=== PATIENT | female | born 1995 | race Caucasian/White ===

== ENCOUNTER → 2018-01-09 | Outpatient (CLI) | payer OTHER ==
[2018-01-14 23:12] LABS: CHLAMYDIA TRACHOMATIS, NAA Negative (Negative); NEISSERIA GONORRHOEAE, NAA Negative (Negative)
== END ==
LOC: LAB 16:32 → LAB SHORT 16:32
PROVIDERS: Nurse Practitioner Family
DX: Z11.3 Encounter for screening for infections with a predominantly sexual mode of transmission (principal)
CPT/HCPCS: 87491; 87591

== ENCOUNTER → 2018-11-07 | Outpatient (CLI) | payer OTHER ==
[2018-12-06 07:10] LABS: HPV GENOTYPE 16 Negative (Negative)
== END | disposition home or self-care (01) ==
LOC: LAB SHORT 11:52 → LAB 11:52
PROVIDERS: Nurse Practitioner Women's Health
DX: R87.612 Low grade squamous intraepithelial lesion on cytologic smear of cervix (LGSIL) (principal)
CPT/HCPCS: 87625

== ENCOUNTER 2019-12-25 11:22 | Emergency (ER) | payer OTHER ==
[~2019-12-25] VITALS: Ht 167.6 cm; Wt 61.2 kg
[2019-12-25] MEDS ORDERED: VENL25 PO (11:43)
[2019-12-25] MEDS ORDERED: Portia1 EACH PO (11:44)
== END 2019-12-25 14:29 | disposition home or self-care (01) ==
LOC: ER 11:22
DX: S16.1XXA Strain of muscle, fascia and tendon at neck level, initial encounter (principal); F32.9 Major depressive disorder, single episode, unspecified; V89.2XXA Person injured in unspecified motor-vehicle accident, traffic, initial encounter
CPT/HCPCS: 99283

== ENCOUNTER → 2022-08-10 | Outpatient (CLI) | payer OTHER ==
[~2022-08-10] MED LIST: Portia1 EACH PO; VENL25 PO
[2022-08-10 18:48] LABS: BASOPHILS ABSOLUTE AUTO 0.05 K/mm3 (0.00-0.23); BASOPHILS PERCENT AUTO 1 % (0-2); EOSINOPHILS PERCENT AUTO 1 % (0-6); Hematocrit 38.6 % (33.0-51.0); Hemoglobin 12.9 g/dL (11.5-16.0); IMMATURE GRAN ABSOLUTE AUTO 0.03 K/mm3 (0.00-0.10); IMMATURE GRAN PERCENT AUTO 0 % (0-1); LYMPHOCYTES ABSOLUTE AUTO 4.16 K/mm3 (0.84-5.20); LYMPHOCYTES PERCENT AUTO 41 % (21-46); MONOCYTES ABSOLUTE AUTO 0.79 K/mm3 (0.16-1.47); MONOCYTES PERCENT AUTO 8 % (4-13); Mean Corpuscular HGB 30.4 pg (26.0-34.0); Mean Corpuscular HGB Conc 33.4 g/dL (31.5-36.5); Mean Corpuscular Volume 91 fL (80-100); Mean Platelet Volume 9.9 fL (9.1-12.4); NEUTROPHILS ABSOLUTE AUTO 5.13 K/mm3 (1.96-9.15); NEUTROPHILS PERCENT AUTO 50 % (41-73); Platelet Count 294 K/mm3 (150-400); RDW Coefficient Variation 12.6 % (11.7-14.2); Red Blood Cell Count 4.25 M/mm3 (3.80-5.20); White Blood Cell Count 10.26 K/mm3 (4.00-11.30)
[2022-08-10 18:53] LABS: Bun/Creatinine Ratio 17.4 (12.0-20.0); Calcium, Blood 9.1 mg/dL (8.5-10.1); Creatinine, Blood 0.69 mg/dL (0.40-1.00); Potassium, Blood 2.9 mmol/L (3.5-5.5)
== END | disposition home or self-care (01) ==
LOC: LAB SHORT 18:43
PROVIDERS: Chiropractor
DX: E87.6 Hypokalemia (principal); R07.9 Chest pain, unspecified
CPT/HCPCS: 80048; 83735; 84484; 85025; 85379

== ENCOUNTER → 2023-09-11 | Outpatient (CLI) | payer OTHER | END | disposition home or self-care (01) | LOC: LAB 17:44 → LAB SHORT 17:44 | DX: R30.0 Dysuria (principal) | CPT/HCPCS: 87086 ==

== ENCOUNTER → 2023-11-21 | Outpatient (CLI) | payer OTHER ==
[2023-11-23 06:00] LABS: APTIMA MEDIA TYPE Urine; C. TRACHOMATIS BY TMA Negative (Negative); N. GONORRHOEAE BY TMA Negative (Negative); SPECIMEN SOURCE Urine
== END | disposition home or self-care (01) ==
LOC: LAB SHORT 08:40 → LAB 08:40
PROVIDERS: Registered Nurse Community Health
DX: Z34.81 Encounter for supervision of other normal pregnancy, first trimester (principal)
CPT/HCPCS: 87491; 87591

== ENCOUNTER → 2024-01-29 | Outpatient (CLI) | payer OTHER ==
[~2024-01-29] MED LIST changes: +CEPH500 PO; +CYCL10 PO; +Robaxin750 MG PO
[2024-01-29 14:45] LABS: Source, Urine Clean Catch
[2024-01-29 17:17] LABS: Bilirubin, Urine Neg (Neg); Blood, Urine Neg (Neg); Color, Urine Yellow (P-Yellow); Glucose Qualitative, Urine Neg (Neg); Ketones, Urine Neg (Neg); Leukocyte Esterase, Urine 1+ (Neg); Nitrite, Urine Neg (Neg); Protein, Urine Neg (Neg); Specific Gravity, Urine 1.015 (1.003-1.022); Urobilinogen, Urine NORM (Normal)
[2024-01-29 17:31] LABS: Appearance, Urine Hazy (Clear)
[2024-01-29 17:32] LABS: Amorphous Mod (0-Heavy); Bacteria Many /hpf; Mucus Light (0-Heavy); Red Blood Cells, Urine 0-2 /hpf (0-2); Squamous Epithelial Cells Many /hpf (Few); Transitional Epithelial Cells Rare /hpf (0-Rare)
== END ==
LOC: LAB 14:41 → LAB SHORT 14:41
PROVIDERS: Pathology Dermatopathology
DX: M54.50 Low back pain, unspecified (principal)
CPT/HCPCS: 81001

== ENCOUNTER 2024-01-30 10:04 | Emergency (ER) | payer OTHER ==
[~2024-01-30] VITALS: Ht 167.6 cm; Wt 69.0 kg
[~2024-01-30 10:04] MED LIST changes: -CEPH500 PO; -CYCL10 PO; -Robaxin750 MG PO
[2024-01-30] MEDS ORDERED: CYCL10 PO (11:12)
[2024-01-30] MEDS ORDERED: Methocarbamol 500 MG Tab PO ONE (11:20)
[2024-01-30] MEDS ORDERED: Lactated Ringer's 1,000 ML IV ONE (11:20)
[2024-01-30] MEDS ORDERED: Acetaminophen 500 MG Tab PO ONE (11:20)
[2024-01-30 11:30] VITALS: BP 104/57
[2024-01-30 11:59] LABS: BASOPHILS ABSOLUTE AUTO 0.05 K/mm3 (0.00-0.23); BASOPHILS PERCENT AUTO 0 % (0-2); EOSINOPHILS ABSOLUTE AUTO 0.07 K/mm3 (0.00-0.68); EOSINOPHILS PERCENT AUTO 1 % (0-6); Hematocrit 31.9 % (33.0-51.0); Hemoglobin 10.6 g/dL (11.5-16.0); IMMATURE GRAN ABSOLUTE AUTO 0.12 K/mm3 (0.00-0.10); IMMATURE GRAN PERCENT AUTO 1 % (0-1); LYMPHOCYTES ABSOLUTE AUTO 1.92 K/mm3 (0.84-5.20); LYMPHOCYTES PERCENT AUTO 16 % (21-46); MONOCYTES ABSOLUTE AUTO 0.68 K/mm3 (0.16-1.47); MONOCYTES PERCENT AUTO 6 % (4-13); Mean Corpuscular HGB 31.2 pg (26.0-34.0); Mean Corpuscular HGB Conc 33.2 g/dL (31.5-36.5); Mean Corpuscular Volume 94 fL (80-100); Mean Platelet Volume 9.3 fL (9.1-12.4); NEUTROPHILS ABSOLUTE AUTO 9.57 K/mm3 (1.96-9.15); NEUTROPHILS PERCENT AUTO 77 % (41-73); Platelet Count 254 K/mm3 (150-400); RDW Coefficient Variation 13.2 % (11.7-14.2); RDW Standard Deviation 45.4 fL (35.1-46.3); White Blood Cell Count 12.41 K/mm3 (4.00-11.30)
[2024-01-30 12:08] LABS: Source, Urine Clean Catch
[2024-01-30 12:13] LABS: Appearance, Urine Hazy (Clear); Bilirubin, Urine Neg (Neg); Blood, Urine Neg (Neg); Color, Urine Yellow (P-Yellow); Glucose Qualitative, Urine Neg (Neg); Ketones, Urine Neg (Neg); Leukocyte Esterase, Urine 2+ (Neg); Nitrite, Urine Neg (Neg); Protein, Urine Neg (Neg); Urobilinogen, Urine NORM (Normal)
[2024-01-30 12:24] LABS: Albumin, Blood 2.9 g/dL (3.4-5.0); Albumin/Globulin Ratio 0.7 (0.8-1.8); Bilirubin, Total 0.3 mg/dL (0.1-1.0); Bun/Creatinine Ratio 19.5 (12.0-20.0); Calcium, Blood 8.5 mg/dL (8.5-10.1); Creatinine, Blood 0.51 mg/dL (0.40-1.00); Globulin, Blood 3.9 g/dL (2.2-4.0); Total Protein, Blood 6.8 g/dL (6.4-8.2)
[2024-01-30 12:26] LABS: Bacteria Many /hpf; Mucus Heavy (0-Heavy); Red Blood Cells, Urine 0-2 /hpf (0-2); Squamous Epithelial Cells Many /hpf (Few)
[2024-01-30] MEDS ORDERED: Cephalexin Monohydrate 500 MG Cap PO ONE (12:50)
[2024-01-30] MEDS ORDERED: CEPH500 PO (12:50)
[2024-01-30] MEDS ORDERED: Robaxin750 MG PO (12:57)
== END 2024-01-30 13:05 | disposition home or self-care (01) ==
LOC: ER 10:04
PROVIDERS: Emergency Medicine
DX: O23.12 Infections of bladder in pregnancy, second trimester (principal); N30.00 Acute cystitis without hematuria; Z3A.23 23 weeks gestation of pregnancy; O99.342 Other mental disorders complicating pregnancy, second trimester; F32.A Depression, unspecified; Z79.899 Other long term (current) drug therapy
CPT/HCPCS: 80053; 81001; 83690; 85025; 87086; 93005; 93010; 96360; 99284-25; A9270; J7120

== ENCOUNTER → 2024-04-28 | Outpatient (CLI) | payer OTHER ==
[~2024-04-28] MED LIST changes: +CEPH500 PO; +CYCL10 PO; +Robaxin750 MG PO
== END | disposition home or self-care (01) ==
LOC: LAB SHORT 10:39 → LAB 10:39
DX: Z34.93 Encounter for supervision of normal pregnancy, unspecified, third trimester (principal)
CPT/HCPCS: 87081; 87150

== ENCOUNTER 2024-05-31 12:30 | Inpatient (IN) | payer OTHER ==
[~2024-05-31] VITALS: Ht 167.6 cm; Wt 84.0 kg
[2024-05-31] MEDS ORDERED: OXYTOCIN/RINGER'S LACTATE 500 ML IV PRN (12:45)
[2024-05-31] MEDS ORDERED: Acetaminophen 500 MG Tab PO PRN (12:45)
[2024-05-31] MEDS ORDERED: ePHEDrine Sulfate 50 MG/ML 1ML Injection XX PRN (12:45)
[2024-05-31] MEDS ORDERED: Methylergonovine Maleate 0.2MG / ML 1ML Amp IM PRN (12:45)
[2024-05-31] MEDS ORDERED: Oxytocin 10 Unit / ML Vial IM PRN (12:45)
[2024-05-31] MEDS ORDERED: FentaNYL 2mcg/ml-Bup 0.1% Epd 250 ML EPI PRN (12:45)
[2024-05-31] MEDS ORDERED: Misoprostol 200 MCG Tab PR PRN (12:45)
[2024-05-31] MEDS ORDERED: Carboprost Tromethamine 250 MCG/ML 1ML Amp IM PRN (12:45)
[2024-05-31] MEDS ORDERED: Misoprostol 200 MCG Tab BC PRN (12:45)
[2024-05-31] MEDS ORDERED: Lactated Ringer's 1,000 ML IV PRN ×3 (12:45)
[2024-05-31] MEDS ORDERED: FentaNYL Citrate 50 MCG/ML 2 ML Injection IV PRN (12:45)
[2024-05-31] MEDS ORDERED: Ondansetron HCl 2 MG / ML 2ML Vial IV PRN (12:45)
[2024-05-31 12:50] VITALS: BP 137/85
[2024-05-31] MEDS ORDERED: Calcium Carbonate 500 MG Tab Chew PO PRN (12:50)
[2024-05-31] MEDS ORDERED: Tranexamic Acid 100 ML IV PRN (12:55)
[2024-05-31] MEDS ORDERED: PANT20 PO (13:14)
[2024-05-31] MEDS ORDERED: PRENATAL TABLE1 EAC2 PO (13:14)
[2024-05-31 13:17] LABS: BASOPHILS ABSOLUTE AUTO 0.06 K/mm3 (0.00-0.23); BASOPHILS PERCENT AUTO 1 % (0-2); EOSINOPHILS ABSOLUTE AUTO 0.08 K/mm3 (0.00-0.68); EOSINOPHILS PERCENT AUTO 1 % (0-6); Hematocrit 36.4 % (33.0-51.0); Hemoglobin 12.2 g/dL (11.5-16.0); IMMATURE GRAN ABSOLUTE AUTO 0.26 K/mm3 (0.00-0.10); IMMATURE GRAN PERCENT AUTO 2 % (0-1); LYMPHOCYTES ABSOLUTE AUTO 2.13 K/mm3 (0.84-5.20); LYMPHOCYTES PERCENT AUTO 17 % (21-46); MONOCYTES ABSOLUTE AUTO 0.99 K/mm3 (0.16-1.47); MONOCYTES PERCENT AUTO 8 % (4-13); Mean Corpuscular HGB 30.5 pg (26.0-34.0); Mean Corpuscular HGB Conc 33.5 g/dL (31.5-36.5); Mean Corpuscular Volume 91 fL (80-100); Mean Platelet Volume 10.5 fL (9.1-12.4); NEUTROPHILS ABSOLUTE AUTO 9.31 K/mm3 (1.96-9.15); NEUTROPHILS PERCENT AUTO 73 % (41-73); Platelet Count 244 K/mm3 (150-400); RDW Coefficient Variation 13.6 % (11.7-14.2); RDW Standard Deviation 45.7 fL (35.1-46.3); White Blood Cell Count 12.83 K/mm3 (4.00-11.30)
[2024-05-31 15:00] VITALS: BP 122/69
[2024-05-31] MEDS ORDERED: Lactated Ringer's 1,000 ML IV SCH (17:20)
[2024-05-31] MEDS ORDERED: OXYTOCIN/RINGER'S LACTATE 500 ML IV SCH ×2 (17:20→17:35)
[2024-05-31 18:01] VITALS: BP 116/65
[2024-05-31 19:34] VITALS: BP 123/68
[2024-05-31] MEDS ORDERED: Morphine Sulfate 10 MG/ML 1MLSYR IM PRN (20:55)
--- NOTE | 2024-05-31 20:58 | NUR ---
DR. PASCUAL MEET WITH PT. DISCUSSED OPTIONS FOR OVER NIGHT AND ALL QUESTIONS WERE ANSWERED. ORDERS FOR A MAX OF PITOCIN AT 8MU. PT CAN HAVE MORPHINE 10MG IM FOR PAIN PRN, VISTRAL 25MG PO PRN OR PHENEGRAN 25MG PO FOR PRN. IF PT GOES INTO [facility] PITOCIN CAN BE SHUT OFF. PT CAN HAVE A PITOCIN BREAK IN AM IF NEEDED. DO NOT CHECK CERVIX UNLESS PT GOES INTO [facility], HAS UNTOLERATED PAIN OR FOR INTOLERANCE. CALL WITH ANY CONCERNS. RBV
[2024-05-31] MEDS ORDERED: Promethazine HCl 25 MG Tab PO PRN (21:00)
[2024-05-31] MEDS ORDERED: HydrOXYzine Pamoate 25 MG Cap PO PRN (21:05)
[2024-06-01] VITALS (30 sets, daily range): BP systolic 95–137; BP diastolic 53–86
[2024-06-01] MEDS ORDERED: Oxytocin 10 Unit / ML Vial IM ONE (20:05)
[2024-06-01] MEDS ORDERED: Benzocaine Topical Anesthetic Spray 60GM TOP PRN (20:05)
[2024-06-01] MEDS ORDERED: OxyCODONE 5 mg/Acetamin 325 mg TABLET PO PRN (20:05)
[2024-06-01] MEDS ORDERED: Acetaminophen 325 MG TABLET PO PRN (20:05)
[2024-06-01] MEDS ORDERED: Diphth,Pertuss(Acell),Tet Vac 0.5 ML VIAL IM SCH (20:05)
[2024-06-01] MEDS ORDERED: Docusate Sodium 100 MG Cap PO PRN (20:05)
[2024-06-01] MEDS ORDERED: Ibuprofen 400 MG Tab PO PRN (20:10)
[2024-06-01] MEDS ORDERED: Lactated Ringer's 1,000 ML IV SCH (20:10)
[2024-06-01] MEDS ORDERED: Witch Hazel/Glycerin PADS TOP PRN (20:10)
[2024-06-01] MEDS ORDERED: OXYTOCIN/RINGER'S LACTATE 500 ML IV SCH (20:10)
[2024-06-01] MEDS ORDERED: Ketorolac Tromethamine 30mg Vial IV PRN (20:10)
[2024-06-01] MEDS ORDERED: Measles/Mumps/Rubella Vaccine 0.5 ML Vial SC SCH (20:10)
[2024-06-01] MEDS ORDERED: FLU VACC TS2024-25(6MOS UP)/PF 45 MCG/0.5 ML SYRINGE IM SCH (20:10)
[2024-06-01] MEDS ORDERED: Misoprostol 200 MCG Tab PR PRN (20:15)
[2024-06-01] MEDS ORDERED: Hydrocortisone/Pramoxine Rectal Foam 10 GM PR SCH (23:00)
[2024-06-01] MEDS ORDERED: Benzocaine/Benzethon Topical Anesthetic Spray 78GM TOP PRN (23:50)
[2024-06-02 00:19] VITALS: BP 109/55
[2024-06-02 04:03] VITALS: BP 101/59
--- NOTE | 2024-06-02 04:07 | NUR ---
Pt up to [facility]. liliana taught
[2024-06-02 05:48] LABS: Hematocrit 31.7 % (33.0-51.0); Hemoglobin 10.4 g/dL (11.5-16.0); Mean Corpuscular HGB 30.3 pg (26.0-34.0); Mean Corpuscular HGB Conc 32.8 g/dL (31.5-36.5); Mean Corpuscular Volume 92 fL (80-100); Mean Platelet Volume 10.8 fL (9.1-12.4); Platelet Count 200 K/mm3 (150-400); RDW Coefficient Variation 13.8 % (11.7-14.2); RDW Standard Deviation 46.7 fL (35.1-46.3); Red Blood Cell Count 3.43 M/mm3 (3.80-5.20); White Blood Cell Count 19.33 K/mm3 (4.00-11.30)
[2024-06-02 07:08] VITALS: BP 120/70
[2024-06-02] MEDS ORDERED: IBUP800 PO (08:20)
[2024-06-02] MEDS ORDERED: DOCU100 PO (08:21)
[2024-06-02] MEDS ORDERED: PRENATAL TABLE1 EAC2 PO (08:21)
--- NOTE | 2024-06-02 08:57 | NUR ---
0730: PT OFFERED ICE PACK FOR PERINEUM. PT DECLINED AT THIS TIME. DISCUSSED SWELLING BEING A CAUSE OF SOME PAIN. ENCOURAGED USE OF NSAIDS AND ICE. PT DECLINED TORDOL OR IBUPROFEN AT THIS TIME. DISCUSSED THE BENEFITS OF USING EITHER. PT ONLY DESIRED TYLENOL 0800: PT REPORTS NO CHANGE IN HER PAIN. OFFERED TORDOL OR IBUPROFEN AND ICE PACK. PT DECLINED ALL. STATES SHE WANTS TO TAKE A SHOWER AND SEE HOW SHE FEELS AFTERWARDS.
[2024-06-02] MEDS ORDERED: Prenatal Vit/FE Fumarate/FA 1 Tab PO SCH ×2 (09:00)
--- NOTE | 2024-06-02 09:39 | NUR ---
PT REPORTS RELIEF OF PAIN AFTER TAKING A SHOWER. UP AMBULATING IN THE ROOM WELL. GOING OVER D/C INSTRUCTIONS. NO QUESTIONS OR CONCERNS AT THIS TIME.
[2024-06-02] MEDS ORDERED: Hydrocortisone 2.5% Cream 30 gm Tube PR SCH (10:00)
[2024-06-02 11:43] VITALS: BP 112/62
[2024-06-02 16:55] VITALS: BP 119/59
--- NOTE | 2024-06-02 17:03 | NUR ---
D/C TO BOARDER STATUS.
== END 2024-06-02 17:03 | disposition home or self-care (01) | DRG 807 ==
LOC: OBS 12:30 → BC 12:30 → OBS 12:41 → BC 12:43
PROVIDERS: Registered Nurse Community Health; ADMIT Family Medicine
PROC: 10D07Z6 Extraction of Products of Conception, Vacuum, Via Natural or Artificial Opening (ICD-10-PCS; principal; 2024-06-01)
PROC: 0KQM0ZZ Repair Perineum Muscle, Open Approach (ICD-10-PCS; 2024-06-01)
PROC: 3E0R3BZ Introduction of Anesthetic Agent into Spinal Canal, Percutaneous Approach (ICD-10-PCS; 2024-06-01)
PROC: 00HU33Z Insertion of Infusion Device into Spinal Canal, Percutaneous Approach (ICD-10-PCS; 2024-06-01)
DX: O48.0 Post-term pregnancy (principal); Z37.0 Single live birth; Z3A.40 40 weeks gestation of pregnancy; Z90.89 Acquired absence of other organs; Z90.49 Acquired absence of other specified parts of digestive tract; Z79.899 Other long term (current) drug therapy; K21.9 Gastro-esophageal reflux disease without esophagitis; O99.62 Diseases of the digestive system complicating childbirth; O70.1 Second degree perineal laceration during delivery
CPT/HCPCS: 36415; 51702; 85025; 85027; 86850; 86900; 86901; 99214; A9270; J1885; J2270; J2590; J7120; Q0177